=== PATIENT | female | born 1995 | race African-American/Black ===

== ENCOUNTER 2021-12-17 15:30 | Emergency (ER) | payer MEDICAID ==
[~2021-12-17] VITALS: Ht 172.7 cm; Wt 109.0 kg
[2021-12-17 15:45] VITALS: BP 153/91
== END 2021-12-17 22:31 | disposition left against medical advice (07) ==
LOC: ER 15:30
DX: Z53.21 Procedure and treatment not carried out due to patient leaving prior to being seen by health care provider (principal)

== ENCOUNTER 2022-07-29 12:21 | Emergency (ER) | payer MEDICAID ==
[~2022-07-29] VITALS: Ht 170.2 cm; Wt 100.0 kg
[2022-07-29] MEDS ORDERED: NAPR-681 MT (14:46)
[2022-07-29] MEDS ORDERED: IBUPROFEN 400MG TABLET PO ONE (15:00)
[2022-07-29 15:21] VITALS: BP 132/85
== END 2022-07-29 15:10 | disposition home or self-care (01) ==
LOC: ER 13:32
DX: S93.401A Sprain of unspecified ligament of right ankle, initial encounter (principal); Z88.0 Allergy status to penicillin; X50.1XXA Overexertion from prolonged static or awkward postures, initial encounter; Y93.89 Activity, other specified; Y92.89 Other specified places as the place of occurrence of the external cause; Y99.0 Civilian activity done for income or pay
CPT/HCPCS: 73610; 73630; 99284

== ENCOUNTER 2022-09-18 15:13 | Emergency (ER) | payer OTHER, MEDICAID ==
[~2022-09-18] VITALS: Ht 170.2 cm; Wt 99.8 kg
[~2022-09-18 15:13] MED LIST: NAPR-681 MT
[2022-09-18 15:34] VITALS: BP 145/98; O2SAT 99
[2022-09-18 15:35] VITALS: PULSE 110; RESP 16; TEMP 98.3
[2022-09-18] MEDS ORDERED: SULF1TAB48 MT (17:03)
== END 2022-09-18 17:35 | disposition home or self-care (01) ==
LOC: ER 15:13
DX: N61.1 Abscess of the breast and nipple (principal); Z88.0 Allergy status to penicillin
CPT/HCPCS: 99283

== ENCOUNTER 2022-09-23 11:28 | Emergency (ER) | payer OTHER, MEDICAID ==
[~2022-09-23] VITALS: Ht 172.7 cm; Wt 113.6 kg
[~2022-09-23 11:28] MED LIST changes: +SULF1TAB48 MT
[2022-09-23 11:39] VITALS: BP 136/91; PULSE 95; RESP 16; TEMP 98.3; O2SAT 100
[2022-09-23] MEDS ORDERED: BACITRACIN ZINC OINT UDPKT TOP ONE (13:30)
[2022-09-23] MEDS ORDERED: LIDOCAINE HCL/PF 1% 10 MG/ML 5ML VIAL INFIL ONE (13:30)
[2022-09-23] MEDS ORDERED: CLIN-194 PO (15:08)
[2022-09-23] MEDS ORDERED: SULF1TAB48 PO (16:06)
== END 2022-09-23 16:19 | disposition home or self-care (01) ==
LOC: ER 11:28
DX: N61.1 Abscess of the breast and nipple (principal); Z88.0 Allergy status to penicillin
CPT/HCPCS: 10060; 99283; J3490; Z7610 ×4

== ENCOUNTER 2022-09-28 13:59 | Emergency (ER) | payer OTHER, MEDICAID ==
[~2022-09-28] VITALS: Ht 175.3 cm; Wt 100.0 kg
[~2022-09-28 13:59] MED LIST changes: +CLIN-194 PO; +SULF1TAB48 PO
[2022-09-28 14:26] VITALS: BP 135/89; PULSE 101; RESP 12; TEMP 98.3; O2SAT 100
== END 2022-09-28 17:10 | disposition home or self-care (01) ==
LOC: ER 13:59
DX: Z48.02 Encounter for removal of sutures (principal)
CPT/HCPCS: 99281

== ENCOUNTER 2023-01-29 19:50 | Emergency (ER) | payer OTHER, MEDICAID ==
[~2023-01-29] VITALS: Ht 170.2 cm; Wt 101.3 kg
[2023-01-29 19:58] VITALS: O2SAT 99
[2023-01-29] MEDS ORDERED: CLIN-194 MT (22:23)
[2023-01-29 23:00] VITALS: BP 119/84; PULSE 99; RESP 20; TEMP 97.6
== END 2023-01-29 23:00 | disposition home or self-care (01) ==
LOC: ER 19:50
DX: N61.1 Abscess of the breast and nipple (principal)
CPT/HCPCS: 99281; 99283